=== PATIENT | male | born 1995 | race Caucasian/White ===

== ENCOUNTER 2017-12-08 13:10 | Emergency (ER) | payer OTHER ==
[~2017-12-08] VITALS: Ht 177.8 cm; Wt 69.4 kg
[2017-12-08] MEDS ORDERED: PANTOPRAZOLE SO40 MG PO (13:25)
[2017-12-08] MEDS ORDERED: VITAMIN D250000 UNIT PO (13:25)
[2017-12-08] MEDS ORDERED: NORCO 5-325 TA1 EACH PO (15:30)
[2017-12-08] MEDS ORDERED: FLOMAX0.4 MG PO (15:30)
[2017-12-08] MEDS ORDERED: ZOFRAN ODT4 MG PO (15:30)
== END 2017-12-08 15:45 | disposition home or self-care (01) ==
LOC: ED 13:10
DX: N13.2 Hydronephrosis with renal and ureteral calculous obstruction (principal); Z88.0 Allergy status to penicillin; Z88.1 Allergy status to other antibiotic agents; Z79.899 Other long term (current) drug therapy
CPT/HCPCS: 74177; 80053; 81001; 83690; 85025; 96374; 96375; 99284; J1885; J2405; Q9967

== ENCOUNTER 2018-03-25 08:34 | Day surgery (SDC) | payer OTHER ==
[~2018-03-25] VITALS: Ht 177.8 cm; Wt 67.1 kg
[~2018-03-25 08:34] MED LIST: CYCLOBENZAPRINE10 MG PO; FLOMAX0.4 MG PO; LINZESS145 MCG PO; MIRALAX17 GM PO; NORCO 5-325 TA1 EACH PO; PANTOPRAZOLE SO40 MG PO; ROBAXIN-750750 MG PO; VITAMIN D250000 UNIT PO; ZOFRAN ODT4 MG PO
--- NOTE | 2018-03-25 10:32 | NUR ---
03/25/18 1032 Keila Plummer 1010 PT ARRIVED IN PACU SLEEPY. ABD SOFT. 1030 OXGYEN REMOVED. SATS 95% ON RA. PT SLEEPY. REU.
--- NOTE | 2018-03-26 08:11 | OR ---
[facility] [address], [place] [address] Signed DATE OF OPERATION: 03/25/2018 SURGEON: Nancy Arango MD UPPER AND LOWER ENDOSCOPY REPORT PREOPERATIVE DIAGNOSES: 1. Epigastric pain. 2. Anorexia. 3. Gastroesophageal reflux disease. 4. Constipation and diarrhea. 5. Rectal bleeding. POSTOPERATIVE DIAGNOSES: 1. Small hiatal hernia. 2. Mild diffuse gastritis. 3. Unremarkable colonoscopy. PROCEDURE(S) PERFORMED: 1. EGD with CLOtest and biopsies of the antrum and GE junction. 2. Colonoscopy with random cold biopsies. ESTIMATED BLOOD LOSS: None. INDICATIONS: Zenon is a 22-year-old gentleman, who was asked to see me for upper and lower endoscopy. He works in the security field. He and his recently moved back to [place] after being in [place]. They both works security for [employer]. He said that is quite well. However, he complains of frequent epigastric pain and trouble eating. He has anorexia and avoids food, and is on the thin side. He said he passed a left-sided kidney stone in November of 2017 and that was quite miserable. He said these pains are different. He often has constipation and blood in his stool, but sometimes has diarrhea. He was given MiraLAX by his primary care provider, but never used it. He took Protonix for short time and thought it made his constipation worse, so we stopped it. He has been trying Linzess for his stomach. He has tried muscle relaxers for his lumbar strain. However, he has had ongoing abdominal symptoms. He talks about pain in various areas of the abdomen along with the weight loss, fatigue. His heart palpitations along with his anxiety and panic attacks. There is some concern obviously that he has irritable bowel syndrome. In the office I gave Zenon and his pamphlets Electronically Signed By: NANCY ARANGO MD 03/26/18 0880 PATIENT NAME: ZENON WHITMORE OPERATIVE REPORT DATE OF : [birth year] REPORT #: [id number] PHYSICIAN: NANCY ARANGO MD PCP: ANDERSON CELESTE DO REPORT IS CONFIDENTIAL AND NOT TO BE RELEASED WITHOUT AUTHORIZATION [facility] [address], [place] [address] Signed on both upper and lower endoscopy. We looked at those together in detail, they understand the nature of the 2 tests along with the risks including, but not limited to gas bloating, crampy abdominal pain, bleeding, perforation, requiring surgery, and missed diagnosis. He also understands the need for IV conscious sedation. I explained to Zenon that we would use typical Versed and fentanyl, however, if it was not enough, we might have to have an Anesthesia provider come and provide propofol with monitored anesthesia care. They had expressed understanding and wished to proceed. PROCEDURE NOTE: Zenon was taken into our endoscopy suite and placed in the supine semi-recumbent position. In total he was given 12 mg of Versed and 200 mcg of fentanyl. Unfortunately, he could make it through his colonoscopy and we did after bring our anesthesia provider in and with the help of propofol and he was relaxed, and the scope was able to advance for the colonoscopy quite well afterwards. In the meantime, we did spray his posterior oropharynx with Hurricaine spray. We utilized a bite block for the upper endoscopy. The adult gastroscope was introduced and advanced out into the third portion of the duodenum under direct visualization of camera without difficulty. The duodenum and pyloric channel were fine. We went ahead and took a biopsy from his duodenum because of the history of diarrhea. Back in the stomach, we could see mild erythematous changes throughout the stomach consistent with mild gastritis. We went and took a biopsy from antrum for CLOtest as well as pathologic review. We found no ulcerations. Upon retroflexion of the camera, he does have a [id number] sized hiatal hernia. There were no gastric or esophageal varices. The scope was withdrawn up through the area of the GE junction, which was compliant without stricture. He does have disruption to the Z-line. He has moderate disruption to the Z-line. There was no Marcelo's mucosa, no distal esophagitis. We went and took a biopsy at the GE junction. The middle and upper esophagus were fine. After this, the gas was suctioned out and the gastroscope was removed. Zenon actually moved around quite a bit during his upper endoscopy. After this, Zenon was rotated into the left lateral decubitus position. We gave him some additional Versed and fentanyl IV. A digital rectal exam was performed and his prostate does have some induration, it is not particularly enlarged. The adult colonoscope was introduced and advanced under direct visualization of the camera. We made an about retirement through, we finally had to call our Anesthesia provider and add propofol. With the addition of the propofol, then he relaxed and the camera was able to pass quite easily into the cecum itself. His prep was good. We could easily see the redding's foot and appendiceal orifice. We made multiple attempts to turn our camera into the terminal ileum without success. After this, we slowly withdrew the scope. We took multiple random biopsies throughout the colon and rectum because of the history of diarrhea. We saw no pathology in the colon, whatsoever. The rectum was unremarkable. Upon retroflexion of the scope, there was no additional pathology noted above the anal Electronically Signed By: NANCY ARANGO MD 03/26/18 0811 PATIENT NAME: ZENON WHITMORE OPERATIVE REPORT DATE OF : [birth year] REPORT #: [id number] PHYSICIAN: NANCY ARANGO MD PCP: ANDERSON CELESTE DO REPORT IS CONFIDENTIAL AND NOT TO BE RELEASED WITHOUT AUTHORIZATION [facility] [address] [place] [id number] Signed canal. Although, we did not have the absolute best angle to review the top of the anus. After this, the gas was suctioned out and the colonoscope was removed. We did not see much either in the way of external hemorrhoids. Overall, Zenon tolerated these procedures quite well. In the end, he did need the propofol as stated above. RECOMMENDATIONS: I will see Zenon back in my office in 7 to 14 days to review his results. I suspect he has some component of irritable bowel syndrome to his symptoms. Nancy Arango MD ALB/MODL /[id number] cc: MD Anderson Blanchard DO Copies: NANCY ARANGO MD, KENT DO ~ Electronically Signed By: NANCY ARANGO MD 03/26/18 0811 PATIENT NAME: ZENON WHITMORE OPERATIVE REPORT DATE OF : [birth year] REPORT #: [id number] PHYSICIAN: NANCY ARANGO MD PCP: ANDERSON CELESTE DO REPORT IS CONFIDENTIAL AND NOT TO BE RELEASED WITHOUT AUTHORIZATION
== END 2018-03-25 12:00 | disposition home or self-care (01) ==
LOC: DS 08:34 → OPS 08:34 → DS 09:45 → OPS 12:00
PROVIDERS: Colon & Rectal Surgery
PROC: 0DB78ZX Excision of Stomach, Pylorus, Via Natural or Artificial Opening Endoscopic, Diagnostic (ICD-10-PCS; 2018-03-25)
PROC: 0DB48ZX Excision of Esophagogastric Junction, Via Natural or Artificial Opening Endoscopic, Diagnostic (ICD-10-PCS; 2018-03-25)
PROC: 0DBE8ZZ Excision of Large Intestine, Via Natural or Artificial Opening Endoscopic (ICD-10-PCS; principal; 2018-03-25 09:45)
PROC: 0DB98ZX Excision of Duodenum, Via Natural or Artificial Opening Endoscopic, Diagnostic (ICD-10-PCS; 2018-03-25 09:45)
DX: K92.2 Gastrointestinal hemorrhage, unspecified (principal); K29.50 Unspecified chronic gastritis without bleeding; K21.0 Gastro-esophageal reflux disease with esophagitis; K44.9 Diaphragmatic hernia without obstruction or gangrene; K58.2 Mixed irritable bowel syndrome; E55.9 Vitamin D deficiency, unspecified; Z88.1 Allergy status to other antibiotic agents; Z88.8 Allergy status to other drugs, medicaments and biological substances; Z79.899 Other long term (current) drug therapy
CPT/HCPCS: 86677; J2250; J2405; J2704; J3010; J7120

== ENCOUNTER 2020-12-04 15:04 | Emergency (ER) | payer OTHER ==
[~2020-12-04] VITALS: Ht 177.8 cm; Wt 67.1 kg
== END 2020-12-04 19:09 | disposition home or self-care (01) ==
LOC: ED 15:04
DX: N50.812 Left testicular pain (principal); Z87.891 Personal history of nicotine dependence; Z88.0 Allergy status to penicillin; Z88.1 Allergy status to other antibiotic agents
CPT/HCPCS: 76870; 81001; 99284-25